=== PATIENT | female | born 1945 | race Hispanic/Latino ===

== ENCOUNTER 2017-04-28 02:05 | Emergency (ER) | payer MEDICARE ==
[~2017-04-28 02:05] MED LIST: ALEN35TA31 PO; ATOR20TA65 PO; LORA0.5T2 PO; LOSA50TA37 PO; MELO-106 PO; METO-391 PO; SERT25TA5 PO
[2017-04-28] MEDS ORDERED: HYDROCODONE/ACETAMINOPHEN 10/325 MG TAB ONE (02:21)
[2017-04-28] MEDS ORDERED: OXYCODONE/ACETAMIN 5/325MG TAB ONE (02:55)
== END 2017-04-28 03:16 | disposition home or self-care (01) ==
LOC: EDH 02:05
DX: G89.29 Other chronic pain (principal); M25.562 Pain in left knee; M25.552 Pain in left hip; R42 Dizziness and giddiness
CPT/HCPCS: 73502; 73562

== ENCOUNTER 2017-05-03 11:39 | Emergency (ER) | payer MEDICARE ==
[2017-05-03] MEDS ORDERED: HYDROCODONE/ACETAMINOPHEN 10/325 MG TAB ONE (12:10)
[2017-05-03] MEDS ORDERED: KETOROLAC TROMETHAMINE 30MG/ML ONE (12:55)
== END 2017-05-03 14:29 | disposition home or self-care (01) ==
LOC: EDH 11:39
DX: G89.29 Other chronic pain (principal); M25.552 Pain in left hip; M54.5 Low back pain; E11.9 Type 2 diabetes mellitus without complications
CPT/HCPCS: 96372; 99283; J1885

== ENCOUNTER → 2017-07-24 | Outpatient (CLI) | payer MEDICARE | END | disposition home or self-care (01) | LOC: RAH 09:48 | PROVIDERS: ATTEND Orthopaedic Surgery | DX: M17.12 Unilateral primary osteoarthritis, left knee (principal) | CPT/HCPCS: 73721 ==